=== PATIENT | male | born 1990 | race Caucasian/White ===

== ENCOUNTER 2018-10-22 22:41 | Emergency (ER) | payer SELFPAY ==
[~2018-10-22] VITALS: Ht 167.6 cm; Wt 90.7 kg
--- NOTE | 2018-10-22 22:48 | NUR ---
PT JESSICA NEWMAN. TAKEN TO BED 11
[2018-10-22 22:50] VITALS: BP 133/91
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
--- NOTE | 2018-10-22 23:22 | NUR ---
PATIENT TAKEN TO CT WITH ANTONIETA VIA [facility].
--- NOTE | 2018-10-22 23:32 | NUR ---
PATIENT RETURN FROM CT.
[2018-10-23] MEDS ORDERED: KETOROLAC 60 MG/2 ML VIAL IM ONE (00:15)
--- NOTE | 2018-10-23 00:44 | NUR ---
PER DR NITIN Lentz COLLAR REMOVED.
[2018-10-23 01:50] VITALS: BP 115/78
== END 2018-10-23 01:50 | disposition home or self-care (01) ==
LOC: MED 22:41
DX: S00.03XA Contusion of scalp, initial encounter (principal); M54.2 Cervicalgia; F17.200 Nicotine dependence, unspecified, uncomplicated; V89.2XXA Person injured in unspecified motor-vehicle accident, traffic, initial encounter; Y93.89 Activity, other specified; Y92.89 Other specified places as the place of occurrence of the external cause; Y99.8 Other external cause status
CPT/HCPCS: 70450; 72125; 96372; 99284; J1885